=== PATIENT | female | born 1965 | race African-American/Black ===

== ENCOUNTER 2022-08-03 15:31 | Outpatient (CLI) | payer BC | END 2022-08-03 15:32 | disposition home or self-care (01) | LOC: CSHMAMMO 15:31 | PROVIDERS: ATTEND Nurse Practitioner Community Health | DX: Z12.31 Encounter for screening mammogram for malignant neoplasm of breast (principal) | CPT/HCPCS: 77063; 77067 ==

== ENCOUNTER 2024-04-11 12:53 | Outpatient (CLI) | payer BC | END 2024-04-11 12:54 | disposition home or self-care (01) | LOC: CSHMAMMO 12:53 | PROVIDERS: ATTEND Nurse Practitioner Community Health | DX: Z12.31 Encounter for screening mammogram for malignant neoplasm of breast (principal) | CPT/HCPCS: 77063; 77067 ==